=== PATIENT | female | born 1965 | race Caucasian/White ===

== ENCOUNTER 2023-02-20 05:53 | Day surgery (SDC) | payer OTHER, SELFPAY ==
[2023-01-31 14:53] VITALS: BMI 28.3
[2023-02-20] VITALS (10 sets, daily range): BP systolic 120–136; BP diastolic 73–88; PULSE 63–87; RESP 12–16; TEMP 35.9–36.5; O2SAT 96–100; BMI 29.6
--- NOTE | 2023-02-20 07:33 | P.OP_ITS ---
Procedure Note - Detailed Date of Procedure 02/20/23 Pre-op Diagnosis Skin Laxity Post-op Diagnosis Same Procedure Performed Cervicoplasty Surgeon Curly Back MD Anesthesia General Description of Procedure Preoperatively the risks, benefits, alternatives were discussed in extensive detail. I want her to be very realistic about the risks involved as well as expectations. Reviewed what we can and cannot accomplish. Realistic expectations of outcome. All questions were answered to satisfaction. Consent obtained. Taken to the operating room placed supine on the operating room table. Anesthesia provided by anesthesiology. Prepped and draped in standard sterile fashion. Surgical time-out was taken. Local anesthesia was provided with a tumescent solution using lidocaine, and epinephrine. Once adequate time for effect a fifteen blade used to make a submental incision. Dissection was continued down identified platysma muscle. Elevated skin flaps with good adiposity of the deep surface throughout the neck. I then proceeded sub platysmal and elevated bilateral. Submandibular was identified. I incised the capsule and the inferior medial aspect and seperated intrapsular. A small superficial portion was removed uneventfully and verified strict hemostasis. I completed platysmal transection at the midline at the level of the hyoid and repaired the platysma inferior with 2-0 PDS. The submental platysma was repaired with 2-0 PDS. I then proceeded with incisions around lobule / post auricular. I elevated skin flaps with good adequate adiposity of the deep surface to have good contour. This was continued for all the areas necessary for mobilization. I incised the platysma at it's posterior border. Elevated for release subplatysmal with no evidence of neurovascular injury. Created a mastoid crevasse and advanced the platysma tension free to the mastoid periosteum which was repaired with 2-0 PDS. Copious irrigated with saline solution and verified strict hemostasis. The skin flaps were just placed into position without any tension. Trimmed as necessary. Preauricular was closed with 5-0 nylon. Postauricular with 5-0 chromic. I did micaela in the hairline. Submental was closed using 3-0 Monocryl followed by running subcuticular 4-0 Monocryl and tissue glue. 3-0 Nylon was used to sutured a hemostatic net for all areas that were undermined. Dressings were placed. Patient was awoken without difficulty. All instrument sponge counts were josé miguel ect at the end of the case. Estimated Blood Loss 25 Drains No Packing No Pathology None sent Complications No immediate complications Condition Stable Disposition PACU
--- NOTE | 2023-02-20 07:58 | P.PNAN_ITS ---
Anes - Initial Pre Proc Eval Procedure: Operation Date: 02/20/23 08:30 Proposed Procedures p Cervicoplasty - Curly Back MD Date/Time: 02/20/23 07:58 Surgeon: Curly Back MD Pre Op Diagnosis: Skin Laxity Patient Data Age: 57 Gender: F Height: 1.63 m Weight: 78.3 kg Last Vital Signs Temp 36.5 C 02/20/23 07:18 Pulse 63 02/20/23 07:18 Resp 16 02/20/23 07:18 BP 124/88 02/20/23 07:18 Pulse Ox 97 02/20/23 07:18 O2 Del Method Room Air 02/20/23 07:18 Allergies Allergy/AdvReac Type Severity Reaction Status Date / Time No Known Allergies Allergy Verified 02/20/23 07:04 Home Medications Medication Instructions Recorded Confirmed Type Eye Vitamin and Minerals 1 tablet PO DAILY 01/31/23 02/20/23 History Fish Oil 1 tablet PO DAILY 01/31/23 02/20/23 History Glucosamine 2 tablet PO DAILY 01/31/23 02/20/23 History Women's Multivitamin 2 tablet PO DAILY 01/31/23 02/20/23 History Zyrtec 10 mg PO DAILY 01/31/23 02/20/23 History ascorbate calcium (vitamin C) 250 mg PO DAILY 01/31/23 02/20/23 History aspirin 81 mg capsule 81 mg PO DAILY 01/31/23 02/20/23 History atorvastatin 10 mg tablet (Lipitor) 10 mg PO DAILY 01/31/23 02/20/23 History celecoxib 100 mg capsule (Celebrex) 100 mg PO DAILY 01/31/23 02/20/23 History cholecalciferol (vitamin D3) 1 tablet PO DAILY 01/31/23 02/20/23 History coQ10 (ubiquinol) 200 mg PO DAILY 01/31/23 02/20/23 History magnesium 1 tablet PO DAILY 01/31/23 02/20/23 History venlafaxine 75 mg capsule,extended 75 mg PO DAILY 01/31/23 02/20/23 History release 24 hr vitamin B complex-vit B12 1 tablet PO DAILY 01/31/23 02/20/23 History Patient hx anesthesia problems: none Family hx anesthesia problems: none Results Review: All pre-operative results and documents have been reviewed as part of the pre- operative evaluation. FOR[facility]LY [facility], [facility] Past Medical History Medical History (Updated 02/20/23 @ 07:59 by Pop Moreno DO) Anemia Anxiety Depression Hyperlipidemia Surgical History Surgical History (Updated 02/29/20 @ 12:46 by Soco Mason) H/O rotator cuff surgery History of appendectomy Hx of cholecystectomy Family History Family History (Updated 02/29/20 @ 12:46 by Soco Mason) Sibling No problems noted. Social History Social History Smoking status: Never smoker Living arrangements: with family Spiritual care concerns: No Anes - Eval Final PreProcedure Day of Procedure 02/20/23 07:58 Patient weight: overweight Heart: regular rate and rhythm Lungs: clear to auscultation Airway: Mallampati scale class II Neurological: alert and oriented Last oral intake: >/= 8 hours ASA classification: II Emergent: no Anesthetic plan: proceed Anesthesia type and monitoring: general ETT and standard monitoring Results Review: All pre-operative results and documents have been reviewed as part of the pre- operative evaluation. Informed Consent: The patient's anesthetic plan and its attendant risks and benefits were discussed with the patient/family/POA. Questions were solicited and answers provided to the satisfaction of the patient/family/POA.
--- NOTE | 2023-02-20 08:01 | WPDHPUPDATE1 ---
History and Physical Update Update Date/Time: 02/20/23 08:01 History and Physical has been reviewed, including an updated exam of the patient. There are NO changes in the patient's condition. Risks, benefits, and alternatives have been discussed and questions answered. Patient agrees to proceed with procedure.
[2023-02-20] MEDS: LACTATED RINGERS 1,000 ML 30 ML IV CONT ×2 (08:10→11:51)
[2023-02-20] MEDS: ceFAZolin SODIUM 2 GM/20 ML SW SYRINGE IV PUSH (08:18)
[2023-02-20] MEDS: TRANEXAMIC ACID 1,000 MG/10 ML AMPUL 1000 MG IV PUSH (08:45)
[2023-02-20] MEDS: LACTATED RINGERS IRRIG 1,000 ML, LIDOCAINE HCL 1% LOCAL INJ 50 ML, EPINEPHrine HCL INJ ... INFILTRATE (08:50)
[2023-02-20] MEDS: BACITRACIN ZINC OINTMENT 0.9 GRAM PACKET 1 PACKET TOPICAL (11:05)
[2023-02-20] MEDS: fentaNYL CITRATE INJ (*CRX) 100 MCG/2 ML VIAL 25 MCG IV PUSH ×3 (12:03→12:24)
--- NOTE | 2023-02-20 12:47 | WPDANESPN ---
Anes - Prog Note Post-Op Date/Time: 02/20/23 12:47 Cardiovascular status: normal Respiratory status: normal Airway patency: baseline Mental status: baseline Post-Op hydration status: normal Vital Signs: Last Vital Signs Temp 36.3 C L 02/20/23 12:30 Pulse 74 02/20/23 12:30 Resp 12 02/20/23 12:30 BP 120/76 02/20/23 12:30 Pulse Ox 99 02/20/23 12:30 O2 Del Method Room Air 02/20/23 12:30 O2 Flow Rate 8 02/20/23 12:00 Pain Score (VAS): 2 I/O: Intake & Output 02/19/23 02/20/23 02/20/23 23:59 07:59 15:59 Intake Total 200 Balance 200 Post-procedural complaints: none Patient Feedback: Patient satisfied with anesthetic care. Other Findings: Patient vital signs back to baseline. Patient denies nausea and vomiting. Patient's pain under control. Patient OK for discharge.
[2023-02-20] MEDS: oxyCODONE HCL (*CRX) 5 MG TAB IR PO (13:11)
== END 2023-02-20 13:25 | disposition home or self-care (01) ==
PROVIDERS: PCP Family Medicine; Visit Provider Surgery Plastic and Reconstructive Surgery
PROC: (CPT 15819; principal; 2023-02-20 08:30)
DX: L98.8 Other specified disorders of the skin and subcutaneous tissue (principal)
CPT/HCPCS: 15819